=== PATIENT | male | born 1960 | race Caucasian/White ===

== ENCOUNTER 2017-05-08 13:30 | Outpatient (CLI) | payer MEDICAID | END 2017-05-08 14:00 | disposition home or self-care (01) | LOC: RT.N 13:30 | PROVIDERS: ATTEND Family Medicine | DX: I10 Essential (primary) hypertension (principal) | CPT/HCPCS: 93005 ==

== ENCOUNTER 2017-05-08 15:11 | Outpatient (CLI) | payer MEDICAID ==
[2017-05-08 18:49] LABS: BASOPHILS # (AUTO) 0.1 10^3/uL (0.0-0.1); BASOPHILS % (AUTO) 1.1 %; EOSINOPHILS # (AUTO) 0.2 10^3/uL (0.0-0.7); EOSINOPHILS % (AUTO) 2.3 %; HGB - HEMOGLOBIN 12.6 g/dL (14.0-18.0); LYMPHOCYTES # (AUTO) 2.1 10^3/uL (1.5-3.5); LYMPHOCYTES % (AUTO) 24.7 %; MEAN CORPUSCULAR HGB CONC 32.5 g/dL (32.0-36.0); MEAN PLATELET VOLUME 8.7 fL (7.4-11.4); MONOCYTES # (AUTO) 0.7 10^3/uL (0.0-1.0); MONOCYTES % (AUTO) 8.6 %; NEUTROPHILS # (AUTO) 5.3 10^3/uL (1.5-6.6); NEUTROPHILS % (AUTO) 63.3 %; PLT - PLATELET COUNT 401 10^3/uL (130-450); RED BLOOD COUNT 4.86 10^6/uL (4.70-6.10); RED CELL DISTRIBUTION WIDTH 13.9 % (12.0-15.0); WHITE BLOOD COUNT 8.3 x10^3/uL (4.8-10.8)
[2017-05-08 19:15] LABS: ALBUMIN 3.9 g/dL (3.2-5.5); ALBUMIN/GLOBULIN RATIO 1.1 (1.0-2.2); ALKALINE PHOSPHATASE 52 IU/L (42-121); ALT ALANINE AMINOTRANSFERASE 61 IU/L (10-60); AST ASPARTATE AMINOTRANSFERASE 44 IU/L (10-42); BILIRUBIN,TOTAL 0.6 mg/dL (0.2-1.0); BUN - BLOOD UREA NITROGEN 13 mg/dL (6-20); CALCIUM 8.5 mg/dL (8.5-10.3); CARBON DIOXIDE - CO2 29 mmol/L (21-32); CHLORIDE 93 mmol/L (101-111); GFR - MDRD 77 (>89); GLUCOSE 94 mg/dL (70-100); SODIUM 137 mmol/L (135-145); TOTAL PROTEIN 7.6 g/dL (6.7-8.2)
== END 2017-05-08 15:12 | disposition home or self-care (01) ==
LOC: LAB.N 15:11
PROVIDERS: ATTEND Family Medicine
DX: I10 Essential (primary) hypertension (principal)
CPT/HCPCS: 36415; 80053; 84443; 85025

== ENCOUNTER 2017-06-01 15:30 | Outpatient (CLI) | payer MEDICAID | END 2017-06-01 15:45 | disposition home or self-care (01) | LOC: RT.N 15:30 | PROVIDERS: ATTEND Family Medicine | DX: R94.31 Abnormal electrocardiogram [ECG] [EKG] (principal); I10 Essential (primary) hypertension | CPT/HCPCS: 93005 ==

== ENCOUNTER 2017-06-04 08:00 | Outpatient (CLI) | payer MEDICAID ==
[2017-06-04 19:18] LABS: CALCIUM 8.8 mg/dL (8.5-10.3); CREATININE 1.2 mg/dL (0.6-1.2)
[2017-06-04 19:29] LABS: PSA FREE 0.309 ng/mL (0.16-2.81)
[2017-06-04 19:30] LABS: PSA TOTAL 0.756 ng/mL (0.000-2.000)
== END 2017-06-04 08:01 | disposition home or self-care (01) ==
LOC: LAB.N 08:00
PROVIDERS: ATTEND Family Medicine
DX: E87.6 Hypokalemia (principal); R35.1 Nocturia
CPT/HCPCS: 36415; 80048; 84154

== ENCOUNTER 2017-09-19 13:44 | Outpatient (CLI) | payer MEDICAID ==
--- NOTE | 2017-09-20 15:21 | Ultrasound Report ---
Procedure Date: 09/19/2017 Accession Number: [id number] / [id number] Procedure: US - Arterial Visceral Complete CPT Code: FULL RESULT: EXAM: RENAL ARTERY DOPPLER ULTRASOUND EXAM DATE: 09/19/2017 03:11 PM. CLINICAL HISTORY: Hypertension, severe. COMPARISON: None. TECHNIQUE: Real-time sonographic vascular imaging was performed by the nuclear powerplant mechanic through the renal arterial system with a linear transducer utilizing color-flow, Doppler flow, and spectral analysis. Multiple outbound call center representative static images were saved for review. FINDINGS: Right Kidney: 11.4 x 6.4 x 6.0 cm. Segmental Artery (PSV, RI) Upper: 17 cm/sec, 0.67. Mid: 16 cm/sec, 0.62. Lower: 17 cm/sec, 0.64. Renal Artery Velocities (PSV, RA/AO) Origin: 98 cm/sec, 1.21. Proximal: 92 cm/sec, 1.14. Mid: 74 cm/sec, 0.91. Distal: 40 cm/sec, 0.50. RRV patent Left Kidney: 10.6 x 5.7 x 5.1 cm. Segmental Artery (PSV, RI) Upper: 18 cm/sec, 0.70. Mid: 20 cm/sec, 0.68. Lower: 15 cm/sec, 0.69 Renal Artery Velocities (PSV, RA/AO) Origin: 139 cm/sec, 1.72. Proximal: 95 cm/sec, 1.17. Mid: 98 cm/sec, 1.21. Distal: 44 cm/sec, 0.54. LRV patent: Yes. Aorta Velocity: Proximal: 81 cm/sec. IMPRESSION: 1. Normal parenchymal echogenicity of the bilateral kidneys without evidence for hydronephrosis. 2. Bilateral renal arterial velocities and spectral waveforms show no evidence for hemodynamically significant stenoses. 2. Bilateral renal segmental arterial resistive indices are within normal limits. 4. Bilateral renal veins are patent. CRITERIA FOR CLASSIFICATION OF RENAL ARTERY (RA) DISEASE BY DUPLEX SCANNING: RA Diameter Reduction/ RA PSV/ RAR: Normal, < 180 cm/sec, < 3.5 < 60%, >= 180 cm/sec, < 3.5 >= 60%, >= 180 cm/sec, >= 3.5 Total Occlusion: Undetectable; Not applicable RADIA
== END 2017-09-19 13:45 | disposition home or self-care (01) ==
LOC: DI 13:44
PROVIDERS: ATTEND Family Medicine
DX: I10 Essential (primary) hypertension (principal)
CPT/HCPCS: 93975

== ENCOUNTER 2018-03-29 08:01 | Outpatient (CLI) | payer MEDICAID ==
[2018-03-29 12:37] LABS: BASOPHILS # (AUTO) 0.1 10^3/uL (0.0-0.1); BASOPHILS % (AUTO) 0.9 %; EOSINOPHILS # (AUTO) 0.3 10^3/uL (0.0-0.7); EOSINOPHILS % (AUTO) 3.8 %; HGB - HEMOGLOBIN 12.7 g/dL (14.0-18.0); LYMPHOCYTES # (AUTO) 2.1 10^3/uL (1.5-3.5); LYMPHOCYTES % (AUTO) 27.1 %; MEAN CORPUSCULAR HEMOGLOBIN 26.8 pg (27.0-31.0); MEAN CORPUSCULAR HGB CONC 33.4 g/dL (32.0-36.0); MEAN CORPUSCULAR VOLUME 80.2 fL (80.0-94.0); MONOCYTES # (AUTO) 0.7 10^3/uL (0.0-1.0); MONOCYTES % (AUTO) 9.5 %; NEUTROPHILS # (AUTO) 4.5 10^3/uL (1.5-6.6); NEUTROPHILS % (AUTO) 58.7 %; PLT - PLATELET COUNT 353 10^3/uL (130-450); RED BLOOD COUNT 4.74 10^6/uL (4.70-6.10); RED CELL DISTRIBUTION WIDTH 13.9 % (12.0-15.0); WHITE BLOOD COUNT 7.7 x10^3/uL (4.8-10.8)
[2018-03-29 12:48] LABS: ALBUMIN/GLOBULIN RATIO 1.1 (1.0-2.2); ALKALINE PHOSPHATASE 61 IU/L (42-121); ALT ALANINE AMINOTRANSFERASE 23 IU/L (10-60); AST ASPARTATE AMINOTRANSFERASE 22 IU/L (10-42); BILIRUBIN,TOTAL 0.9 mg/dL (0.2-1.0); BUN - BLOOD UREA NITROGEN 13 mg/dL (6-20); CALCIUM 8.6 mg/dL (8.5-10.3); CARBON DIOXIDE - CO2 32 mmol/L (21-32); CHLORIDE 99 mmol/L (101-111); CHOL/HDL RATIO 5.9 (<5.0); CHOLESTEROL 266 mg/dL; CREATININE 0.9 mg/dL (0.6-1.2); GFR - MDRD 87 (>89); GLUCOSE 98 mg/dL (70-100); HDL CHOLESTEROL 45 mg/dL; LDL CHOLESTEROL,CALCULATED 192 mg/dL; LDL/HDL RATIO 4.3 (<3.6); SODIUM 139 mmol/L (135-145); TOTAL PROTEIN 7.5 g/dL (6.7-8.2); VLDL CHOLESTEROL 29 mg/dL
== END 2018-03-29 23:59 | disposition home or self-care (01) ==
LOC: LAB.N 08:01
PROVIDERS: ATTEND Family Medicine
DX: E87.6 Hypokalemia (principal); I10 Essential (primary) hypertension; E66.9 Obesity, unspecified
CPT/HCPCS: 36415; 80053; 80061; 83721; 84443; 85025

== ENCOUNTER 2018-06-10 08:00 | Outpatient (CLI) | payer MEDICAID ==
[2018-06-10 14:21] LABS: CHOL/HDL RATIO 3.1 (<5.0); CHOLESTEROL 131 mg/dL; HDL CHOLESTEROL 42 mg/dL; LDL CHOLESTEROL,CALCULATED 75 mg/dL; LDL/HDL RATIO 1.8 (<3.6); VLDL CHOLESTEROL 14 mg/dL
== END 2018-06-10 23:59 ==
LOC: LAB.N 08:00
PROVIDERS: ATTEND Physician Assistant Medical
DX: E78.5 Hyperlipidemia, unspecified (principal)
CPT/HCPCS: 36415; 80061; 83721

== ENCOUNTER 2018-11-29 23:02 | Outpatient (CLI) | payer MEDICAID | END 2018-11-29 23:03 | disposition E | LOC: EMS 23:02 | PROVIDERS: ATTEND Surgery ==